=== PATIENT | male | born 1950 | race Caucasian/White ===

== ENCOUNTER → 2016-08-10 | Outpatient (CLI) | payer MEDICARE, OTHER ==
[~2016-08-10] MED LIST: ALDACTONE25 MG PO; COREG25 MG PO; COZAAR25 MG PO; LASIX80 MG PO; PROTONIX40 MG PO; ULTRAM50 MG PO
== END | disposition disaster alternative care site (69) ==
LOC: GRAD 11:27
DX: K76.9 Liver disease, unspecified (principal); R91.8 Other nonspecific abnormal finding of lung field
CPT/HCPCS: A9503

== ENCOUNTER → 2016-08-25 | Outpatient (CLI) | payer MEDICARE, OTHER | END | disposition disaster alternative care site (69) | LOC: GKIC 11:56 | DX: K76.9 Liver disease, unspecified (principal); R91.8 Other nonspecific abnormal finding of lung field; C80.1 Malignant (primary) neoplasm, unspecified | CPT/HCPCS: A9552 ==

== ENCOUNTER → 2016-10-11 | Outpatient (CLI) | payer MEDICARE, OTHER | END | disposition disaster alternative care site (69) | LOC: GRAD 13:50 | DX: C15.5 Malignant neoplasm of lower third of esophagus (principal); C79.31 Secondary malignant neoplasm of brain; C78.7 Secondary malignant neoplasm of liver and intrahepatic bile duct; J98.4 Other disorders of lung | CPT/HCPCS: Q9967 ==